=== PATIENT | male | born 1940 | race Caucasian/White ===

== ENCOUNTER → 2019-06-26 08:08 | Outpatient (CLI) | payer OTHER, SELFPAY ==
--- NOTE | 2019-06-26 | DI.NM.S_ITS ---
PROCEDURE: NM WINSOME PERF SPECT REST & STR Rest and exercise myocardial perfusion SPECT with gated imaging and ejection fraction RADIOPHARMACEUTICAL: 12.3 mCi Tc-99m sestamibi IV at rest and 26.8 mCi Tc-99m sestamibi IV at peak exercise. A one day-protocol was performed. INDICATIONS: Atherosclerotic heart disease of [place] coronary TECHNIQUE: Radiopharmaceutical was injected at peak stress test, and also at rest. SPECT images were obtained. SPECT myocardial perfusion images were displayed in short axis, horizontal long axis, and vertical long axis views. Gated images were reviewed using Agavideo software. COMPARISON: None. CARDIAC STRESS: A standard Anam treadmill exercise tolerance test was performed by the patient under the supervision of an attending staff. The patient exercised for 6 minutes and 53 seconds reaching 10.1 METs; functional aerobic impairment (JENNY) is -15%. Hemodynamic data: There is normal blood pressure and heart rate response to exercise stress. Patient achieved 98% of maximum predicted heart rate at peak exercise. Symptoms: Patient had mild epigastric discomfort during second stage of anam protocol that worsened slightly during third stage of anam protocol and the symptoms resolved within one minute of recovery. EKG: Mild horizontal ST depressions in the inferior and anterolateral barger 3 minutes into recovery. FINDINGS: Raw data: There is good myocardial labeling by radiotracer. No significant motion artifacts. Undp-mo-lkoaq ratio is 0.2 (normal is less than 0.38 for sestamibi tracer, and less than 0.50 for thallium tracer). Left ventricle function: Gated images demonstrate normal left ventricle wall thickening. No segmental wall motion abnormality. No transient ischemic dilation; TID is 0.96 (normal less than 1.3). The left ventricle resting end-diastolic volume is 102 mL. Left ventricle stress ejection fraction is 67%; normal values are above 45%. Myocardial perfusion: There is moderately sized, moderately severe reversible perfusion defect at the apex consistent with ischemia in the LAD territory. No infarction. SSS 6. SRS 1. IMPRESSION: Abnormal nuclear stress test consistent with ischemia. No infarction. 1) There is moderately sized, moderately severe reversible perfusion defect at the apex consistent with ischemia in the LAD territory. No infarction. SSS 6. SRS 1. 2) Normal left ventricular size, wall motion, and systolic function (EF post stress 67%). 3) ECG changes suggestive of ischemia. 4) Angina during the study. 5) Above average exercise tolerance (10.1 METs JENNY -15%). Adequate stress test as 98% of maximum predicted heart rate achieved. 6) No prior nuclear stress test available for comparison. Dictated by: Lev Rodríguez MD on 06/26/2019 at 15:09 Approved by: Lev Rodríguez MD on 06/26/2019 at 15:14
== END ==
PROVIDERS: PCP Internal Medicine; Visit Provider Internal Medicine Cardiovascular Disease
DX: I25.10 Atherosclerotic heart disease of native coronary artery without angina pectoris (principal)
CPT/HCPCS: 78452; 93016; 93017; 93018; A9502

== ENCOUNTER → 2019-07-15 12:58 | Outpatient (CLI) | payer OTHER, SELFPAY ==
[2019-07-15 15:55] LABS: Estimated Glomerular Filt Rate > 60.0 mL/min (>60)
== END ==
PROVIDERS: PCP Internal Medicine; Visit Provider Internal Medicine Interventional Cardiology
DX: I25.119 Atherosclerotic heart disease of native coronary artery with unspecified angina pectoris (principal)
CPT/HCPCS: 36415; 82565

== ENCOUNTER → 2019-08-27 10:37 | Outpatient (CLI) | payer OTHER, SELFPAY ==
--- NOTE | 2019-08-27 | DI.NM.S_ITS ---
PROCEDURE: NM WINSOME PERF SPECT REST & STR Rest and exercise myocardial perfusion SPECT with gated imaging and ejection fraction RADIOPHARMACEUTICAL: 25.8 mCi Tc-99m sestamibi IV at rest and 25.4 mCi Tc-99m sestamibi IV at peak exercise. A two day-protocol was performed. INDICATIONS: Atherosclerotic heart disease of [place] coronary, exertional chest pain TECHNIQUE: Radiopharmaceutical was injected at peak stress test, and also at rest. SPECT images were obtained. SPECT myocardial perfusion images were displayed in short axis, horizontal long axis, and vertical long axis views. Gated images were reviewed using [employer] software. COMPARISON: None. CARDIAC STRESS: A standard Anam treadmill exercise tolerance test was performed by the patient under the supervision of an attending staff. The patient exercised for 7 minutes and 4 seconds reaching 10.1 METs; functional aerobic impairment (JENNY) is -10%. Hemodynamic data: There is normal blood pressure and heart rate response to exercise stress. Patient achieved 98% of maximum predicted heart rate at peak exercise. Symptoms: Patient developed 2/10 chest discomfort about 5 minutes and 30 seconds into exercise. It decreased during recovery and resolved with nitro SL. EKG: No diagnostic EKG changes of ischemia; frequent PVCs during recovery. FINDINGS: Raw data: There is good myocardial labeling by radiotracer. No significant motion artifacts. Eoai-aw-vlcrb ratio is 0.39 (normal is less than 0.38 for sestamibi tracer, and less than 0.50 for thallium tracer). Left ventricle function: Gated images demonstrate normal left ventricle wall thickening. No segmental wall motion abnormality. No transient ischemic dilation; TID is 0.74 (normal less than 1.3). The left ventricle resting end-diastolic volume is 106 mL. Left ventricle stress ejection fraction is 66%; normal values are above 45%. Myocardial perfusion: There is a large reversible defect involving the entire apex consistent with ischemia with no significant infarction. SSS 10, SRS 2. IMPRESSION: Abnormal treadmill nuclear stress test, consistent with ischemia. 1) There is a large reversible defect involving the entire apex consistent with ischemia with no significant infarction. SSS 10, SRS 2. 2) Normal left ventricular size, wall motion, and systolic function (EF post stress 66%). 3) No ECG evidence of ischemia. 4) Mild angina with exercise that resolved with rest and nitroglycerin sublingual X1. 5) Above average exercise tolerance (10.1 METs, JENNY -10%). Target heart rate achieved. 6) Compared to the treadmill nuclear stress test done 06/26/2019, the apical ischemia appears slightly worse but there are no ECG changes on this study compared to the prior study. Both studies demonstrated angina in the patient. Dictated by: Lev Rodríguez MD on 08/28/2019 at 16:33 Approved by: Lev Rodríguez MD on 08/28/2019 at 16:42
== END ==
PROVIDERS: PCP Internal Medicine; Visit Provider Internal Medicine Cardiovascular Disease
DX: I25.118 Atherosclerotic heart disease of native coronary artery with other forms of angina pectoris (principal); Z95.5 Presence of coronary angioplasty implant and graft
CPT/HCPCS: 78452; 93016; 93017; 93018; A9502

== ENCOUNTER 2019-09-01 08:02 | Outpatient (RCR) | payer OTHER, SELFPAY | END 2019-09-01 15:19 | disposition home or self-care (01) | LOC: CAR 08:02 | PROVIDERS: PCP Internal Medicine; Visit Provider Internal Medicine Cardiovascular Disease | DX: Z95.5 Presence of coronary angioplasty implant and graft (principal) | CPT/HCPCS: 93798 ==

== ENCOUNTER → 2019-11-21 08:42 | Outpatient (CLI) | payer MEDICARE, SELFPAY ==
[2019-11-21 10:12] LABS: Add Manual Diff / Slide Review NO; Basophils Absolute Auto 0 /uL (0-100); Basophils Percent Auto 0.8 % (0-2); Eosinophils Absolute Auto 100 /uL (0-450); Eosinophils Percent Auto 1.1 % (2-4); Hematocrit 44.2 % (41-53); Hemoglobin 15.5 g/dL (13.5-17.5); Lymphocytes Absolute Auto 1400 /uL (1100-4500); Lymphocytes Percent Auto 27.7 % (25-40); Mean Corpuscular HGB Conc 35.1 % (30-36); Mean Corpuscular Hemoglobin 31.6 PG (26-34); Mean Corpuscular Volume 90.1 fL (80-100); Monocytes Absolute Auto 400 /uL (0-900); Monocytes Percent Auto 8.6 % (3-14); Neutrophils Absolute Auto 3100 /uL (1500-7000); Neutrophils Percent Auto 61.8 % (50-75); Platelet Count 289 X10^3/uL (150-400); Red Blood Cell Count 4.91 X10^6/uL (4.5-5.9); Red Cell Distribution Width 13.6 % (11.6-14.8)
[2019-11-21 10:27] LABS: BUN Creatinine Ratio 18.6 (6-22); Blood Urea Nitrogen 13 mg/dL (9-20); Calcium 9.5 mg/dL (8.4-10.2); Carbon Dioxide 32 mmol/L (22-32); Chloride 97 mmol/L (98-107); Cholesterol 144 mg/dL (140-199); Estimated Glomerular Filt Rate > 60.0 mL/min (>60); Glucose 123 mg/dL (80-110); HDL Cholesterol 48 mg/dL (40-60); HEMOLYSIS < 15 (0-50); LDL Cholesterol Calculated 82 mg/dL (<100); Potassium 4.4 mmol/L (3.4-5.1); Sodium 136 mmol/L (137-145); Triglycerides 71 mg/dL (35-150)
== END ==
PROVIDERS: PCP Internal Medicine; Visit Provider Internal Medicine Cardiovascular Disease
DX: E78.5 Hyperlipidemia, unspecified (principal); I25.10 Atherosclerotic heart disease of native coronary artery without angina pectoris
CPT/HCPCS: 36415; 80048; 80061; 85025

== ENCOUNTER 2021-01-04 13:08 | Emergency (ER) | payer OTHER, SELFPAY ==
[2021-01-04] VITALS (7 sets, daily range): BP systolic 120–174; BP diastolic 61–85; PULSE 57–71; RESP 18; TEMP 36.6; O2SAT 95–98
--- NOTE | 2021-01-04 13:16 | DI.CT.S_ITS ---
PROCEDURE: CT HEAD/BRAIN WO CON INDICATIONS: dizzy TECHNIQUE: Noncontrast 4.5 mm thick angled axial sections acquired from the foramen magnum to the vertex, with coronal and sagittal reformats. For radiation dose reduction, the following was used: automated exposure control, adjustment of mA and/or kV according to patient size. COMPARISON: None. FINDINGS: Image quality: Excellent. CSF spaces: Basal cisterns are patent. No extra-axial fluid collections. The ventricles are symmetric in size and shape. Brain: No intracranial bleeds or masses. There is cerebral volume loss for age, with resultant ventricular and sulcal prominence. There are periventricular and deep white matter chronic small vessel ischemic changes. There is intracranial internal carotid artery atherosclerosis. Skull and face: Calvarium and visualized facial bones appear intact, without suspicious lesions. Sinuses: Visualized sinuses and mastoids are clear. IMPRESSION: Mild microvascular atherosclerotic change in the deep white matter of each hemisphere, expected for age. No acute disease. Dictated by: Josiah Quinteros M.D. on 01/04/2021 at 13:40 Approved by: Josiah Quinteros M.D. on 01/04/2021 at 13:40
[2021-01-04 13:40] LABS: Add Manual Diff / Slide Review NO; Basophils Absolute Auto 0 /uL (0-100); Basophils Percent Auto 0.5 % (0-2); Eosinophils Absolute Auto 100 /uL (0-450); Hematocrit 41.3 % (41-53); Hemoglobin 14.1 g/dL (13.5-17.5); Lymphocytes Absolute Auto 1100 /uL (1100-4500); Mean Corpuscular HGB Conc 34.1 % (30-36); Mean Corpuscular Hemoglobin 30.7 PG (26-34); Mean Corpuscular Volume 90.1 fL (80-100); Monocytes Absolute Auto 400 /uL (0-900); Monocytes Percent Auto 7.2 % (3-14); Neutrophils Absolute Auto 4600 /uL (1500-7000); Neutrophils Percent Auto 74.3 % (50-75); Platelet Count 242 X10^3/uL (150-400); Red Blood Cell Count 4.58 X10^6/uL (4.5-5.9); Red Cell Distribution Width 13.5 % (11.6-14.8); White Blood Cell Count 6.2 X10^3/uL (4.5-11.0)
[2021-01-04] MEDS: SODIUM CHLORIDE 0.9% 1,000 ML 150 ML IV (13:40)
[2021-01-04] MEDS: ONDANSETRON 4 MG/2 ML INJ IV (13:41)
[2021-01-04] MEDS: MECLIZINE HCL 12.5 MG TABLET 25 MG PO (13:41)
[2021-01-04 13:55] LABS: Alanine Aminotransferase 26 IU/L (<50); Albumin 3.9 g/dL (3.5-5.0); Albumin Globulin Ratio 1.8 (1.0-2.8); Alkaline Phosphatase 82 U/L (38-126); Aspartate Aminotransferase 25 IU/L (17-59); BUN Creatinine Ratio 24.6 (6-22); Bilirubin Total 0.4 mg/dL (0.2-1.3); Blood Urea Nitrogen 15 mg/dL (9-20); Calcium 8.7 mg/dL (8.4-10.2); Carbon Dioxide 26 mmol/L (22-32); Chloride 100 mmol/L (98-107); Creatine Kinase 29 U/L (55-170); Estimated Glomerular Filt Rate > 60.0 mL/min (>60); Globulin 2.2 g/dL (1.7-4.1); Glucose 203 mg/dL (80-110); HEMOLYSIS < 15 (0-50); Potassium 3.9 mmol/L (3.4-5.1); Sodium 132 mmol/L (137-145); Total Protein 6.1 g/dL (6.3-8.2)
[2021-01-04 14:07] LABS: Troponin I < 0.012 ng/mL (0.01-0.034)
--- NOTE | 2021-01-04 15:26 | ED_ITS ---
HPI - Dizziness General Chief Complaint: Dizziness Stated Complaint: Dizzy Time Seen by Provider: 01/04/21 13:14 Source: patient Mode of arrival: EMS History of Present Illness HPI Narrative: Patient is a 80-year-old male with history of coronary artery disease and stent placed who presents with dizziness off and on for last 3 days. He said he 1st felt it a couple days ago when he got up to use the restroom. He denies any nausea or vomiting he has some slight head pressure no weakness numbness or tingling. He has also had some intermittent episodes since then. Brace on his prior history of cardiac disease patient was worried today and wanted to have some further evaluation could the dizziness seemed to get a little worse whenever he stands. He denies any chest pain. He was worried he might be having a stroke. MD complaint: dizziness Onset (ago): day(s) Description: sense of movement History of similar episodes: No History of trauma: No Severity: mild Related Data Allergies Allergy/AdvReac Type Severity Reaction Status Date / Time Penicillins Allergy Verified 01/04/21 13:39 Review of Systems Review of Systems ROS Unobtainable: All systems reviewed & are unremarkable except as noted in HPI and below Constitutional Constitutional: Denies chills, Denies fever(s), Denies frequent falls, Reports headache(s), Denies lethargy and Denies weakness Eyes Eyes: Denies change in vision, Denies eye discharge, Denies irritation and Denies loss of vision ENT Ears, Nose, Mouth, and Throat: Reports dizziness and Reports headache(s) Cardiovascular Cardiovascular: Denies chest pain, Denies syncope, Denies irregular heart rhythm, Denies lightheadedness, Denies palpitations, Denies dyspnea, Denies dyspnea on exertion and Denies orthopnea Respiratory Respiratory: Denies cough, Denies dyspnea, Denies dyspnea on exertion and Denies wheezing Gastrointestinal Gastrointestinal: Denies abdominal pain, Denies change in bowel habits, Denies diarrhea, Denies nausea and Denies vomiting Musculoskeletal Musculoskeletal: Denies back pain and Denies myalgias Integumentary/Breasts Skin/Breast: Denies pruritus, Denies erythema, Denies rash and Denies wounds Neurologic Neurologic: Reports dizziness, Denies syncope, Denies frequent falls, Reports headache(s), Denies loss of vision and Denies weakness Endocrine Endocrine: Denies palpitations Allergic/Immunologic Allergic/Immunologic: Denies wheezing Patient History Medical History Coronary artery disease Diabetes Exam Initial Vital Signs Initial Vital Signs: Vital Signs Temperature 97.9 F 01/04/21 13:11 Pulse Rate 71 01/04/21 13:11 Respiratory Rate 18 01/04/21 13:11 Blood Pressure 174/83 H 01/04/21 13:11 Pulse Oximetry 98 01/04/21 13:11 GENERAL: Alert pleasant 80-year-old male and in no acute distress. HEENT: Head atraumatic,EOMI, pupils reactive, no nystagmus face symmetric, moist mucous membranes CARDIOVASCULAR: Regular rate and rhythm without murmurs, rubs or gallops. RESPIRATORY: Breath sounds equal bilaterally, no wheezes rales or rhonchi. ABDOMEN: Soft, nontender. Normoactive bowel sounds all 4 quadrants. No guarding or rebound. EXTREMITIES: Normal range of motion, no clubbing or edema. Neurovascularly intact NEUROLOGICAL: Alert and oriented x4.Normal gait and speech. Cranial nerves II through XII grossly intact. Good mkvpul-nz-yzia, good imxl-tr-rmiv, strength equal bilaterally, no dysarthria or aphasia, sensation in tact to soft touch bilaterally, no visual changes, no facial droop SKIN: Warm, dry, no laceration, no petechiae, no rashes or lesions. Scores NIH Stroke Scale Level of Conciousness: Alert, keenly responsive Ask month/age: Answers both questions correctly. Open/close eyes, close hand: Performs both tasks correctly Best gaze horizontal: Normal Visual [place]: No visual loss Facial palsy: Normal symetrical movement Left arm drift: No drift for full 10 sec Right arm drift: No drift for full 10 sec Left leg drift: No drift for full 5 sec Right leg drift: No drift for full 5 sec Limb ataxia: Absent Sensory on face/arms/legs: Normal, no sensory loss Best language: No aphasia, normal Dysarthria: Normal Extinction or inattention: No abnormality Total NIH Stroke scale score: 0 Course Orders Ordered: ED Orders 01/04/21 13:13 EKG-12 Lead Routine 01/04/21 13:16 CT head/brain wo con Stat 01/04/21 13:32 Complete Blood Count AUTO DIFF Stat Comprehensive Metabolic Panel Stat Troponin & CK Cardiac Panel Stat 01/04/21 15:46 CT angio head and neck Stat Discontinued Medications Sodium Chloride (Normal Saline 0.9%) 1,000 mls @ 150 mls/hr IV CONT QUYNH Last Infusion: 01/04/21 16:22 Dose: 0 mls/hr Documented by: Infusion: 01/04/21 16:01 Dose: 150 mls/hr Documented by: Infusion: 01/04/21 15:00 Dose: 0 mls/hr Documented by: Admin: 01/04/21 13:40 Dose: 150 mls/hr Documented by: HANG Meclizine HCl (Meclizine Hcl 12.5 Mg Tablet) 25 mg PO NOW ONE Stop: 01/04/21 13:17 Last Admin: 01/04/21 13:41 Dose: 25 mg Documented by: HANG Ondansetron HCl (Ondansetron 4 Mg/2 Ml Inj) 4 mg IV NOW ONE Stop: 01/04/21 13:17 Last Admin: 01/04/21 13:41 Dose: 4 mg Documented by: HANG Vital Signs Vital signs: Vital Signs - 8 hr 01/04/21 13:11 01/04/21 13:48 01/04/21 14:00 Temperature 97.9 F Pulse Rate 71 62 66 Respiratory Rate 18 Blood Pressure 174/83 H 125/61 Pulse Oximetry 98 95 97 01/04/21 14:30 01/04/21 15:00 01/04/21 16:17 Temperature Pulse Rate 58 L 57 L Respiratory Rate Blood Pressure 120/61 124/62 Pulse Oximetry 97 98 98 01/04/21 16:18 Temperature Pulse Rate 58 L Respiratory Rate Blood Pressure 137/85 Pulse Oximetry 98 MDM - Dizziness Lab Data Attestation: I reviewed the patient's lab results. Result diagrams: 01/04/21 13:32 01/04/21 13:32 Labs: Lab Results 01/04/21 01/04/21 Range/Units 13:32 13:32 WBC 6.2 (4.5-11.0) X10^3/uL RBC 4.58 (4.5-5.9) X10^6/uL Hgb 14.1 (13.5-17.5) g/dL Hct 41.3 (41-53) % MCV 90.1 (80-100) fL MCH 30.7 (26-34) PG MCHC 34.1 (30-36) % RDW 13.5 (11.6-14.8) % Plt Count 242 (150-400) X10^3/uL Neut % (Auto) 74.3 (50-75) % Lymph % (Auto) 17.0 L (25-40) % Henry % (Auto) 7.2 (3-14) % Eos % (Auto) 1.0 L (2-4) % Baso % (Auto) 0.5 (0-2) % Neut # (Auto) 4600 (9131-5616) /uL Lymph # (Auto) 1100 (4299-0309) /uL Henry # (Auto) 400 (0-900) /uL Eos # (Auto) 100 (0-450) /uL Baso # (Auto) 0 (0-100) /uL Sodium 132 L (137-145) mmol/L Potassium 3.9 (3.4-5.1) mmol/L Chloride 100 (98-107) mmol/L Carbon Dioxide 26 (22-32) mmol/L BUN 15 (9-20) mg/dL Creatinine 0.61 L (0.66-1.25) mg/dL Estimated GFR > 60.0 (>60) mL/min BUN/Creatinine Ratio 24.6 H (6-22) Glucose 203 H (80-110) mg/dL Calcium 8.7 (8.4-10.2) mg/dL Total Bilirubin 0.4 (0.2-1.3) mg/dL AST 25 (17-59) IU/L ALT 26 (<50) IU/L Alkaline Phosphatase 82 (38-126) U/L Total Creatine Kinase 29 L (55-170) U/L CK-MB (CK-2) TNP CK-MB (CK-2) Rel Index TNP Troponin I < 0.012 (0.01-0.034) ng/mL Total Protein 6.1 L (6.3-8.2) g/dL Albumin 3.9 (3.5-5.0) g/dL Globulin 2.2 (1.7-4.1) g/dL Albumin/Globulin Ratio 1.8 (1.0-2.8) Imaging Data CT scan - head: Radiologist's Impression: PROCEDURE: CT HEAD/BRAIN WO CON INDICATIONS: dizzy TECHNIQUE: Noncontrast 4.5 mm thick angled axial sections acquired from the foramen magnum to the vertex, with coronal and sagittal reformats. For radiation dose reduction, the following was used: automated exposure control, adjustment of mA and/or kV according to patient size. COMPARISON: None. FINDINGS: Image quality: Excellent. CSF spaces: Basal cisterns are patent. No extra-axial fluid collections. The ventricles are symmetric in size and shape. Brain: No intracranial bleeds or masses. There is cerebral volume loss for age, with resultant ventricular and sulcal prominence. There are periventricular and deep white matter chronic small vessel ischemic changes. There is intracranial internal carotid artery atherosclerosis. Skull and face: Calvarium and visualized facial bones appear intact, without suspicious lesions. Sinuses: Visualized sinuses and mastoids are clear. IMPRESSION: Mild microvascular atherosclerotic change in the deep white matter of each hemisphere, expected for age. No acute disease. Dictated by: Josiah Quinteros M.D. on 01/04/2021 at 13:40 CTA - brain/neck: Radiologist's Impression: PROCEDURE: CT ANGIO HEAD AND NECK INDICATIONS: dizzy TECHNIQUE: After the administration of intravenous contrast, 1 mm thick sections acquired from the aortic arch through the [place]. Post-contrast 4.5 mm thick sections then re-acquired from the foramen magnum to the vertex. 3-dimensional ttsyhcv-uthizbdsq-zmlkgthios (MIP) and/or volume rendering reformats were acquired of the central intracranial vasculature and neck separately. COMPARISON: None. FINDINGS: Image quality: Excellent. BRAIN: CSF spaces: Ventricles are normal in size and shape. Basal cisterns are patent. No extra-axial fluid collections. Brain: No midline shift. No intracranial bleeds or masses. [place]-white matter interface appears intact. Skull and face: Calvarium and facial bones appear intact, without suspicious lesions. Orbits appear normal. Sinuses: Sinuses and mastoids are clear. HEAD CT ANGIOGRAPHY: Anterior circulation: Intracranial internal carotid arteries are normal in size and flow. The flow within the paired anterior cerebral arteries is normal and symmetric. The flow within the middle cerebral arteries is normal and symmetric. The anterior communicating artery is seen, and the right anterior cerebral artery is fed through the communicating artery from the left with absence of the A1 segment on the right. No aneurysms are seen. Posterior circulation: Visualized portions of the vertebral arteries demonstrate normal caliber, and join to form a normal appearing basilar artery. Flow within the posterior cerebral arteries is normal and symmetric. No aneurysms are seen. NECK CT ANGIOGRAPHY: Carotid system: The great vessels demonstrate a conventional anatomy as they arise from the aortic arch. The origins of the common carotid arteries appear patent. The common carotid arteries demonstrate normal caliber and courses. The bifurcation regions are both widely patent. The internal carotid arteries demonstrate normal calibers and courses. Posterior circulation: The origins of the vertebral arteries both appear widely patent. The more superior extracranial portions of both vertebral arteries also demonstrate normal courses and calibers. They join to form a normal appearing basilar artery. Soft tissues: Visualized neck soft tissues demonstrate no suspicious abnormalities. Bones: No suspicious bony lesions. Visualized cervical spine appears normally aligned. IMPRESSION: No area of aneurysm or embolic disease is found. No atherosclerotic stenosis of significance identified. 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 No sign of intracranial hemorrhage or mass, no ischemic injury is seen. Source of reported dizziness is not identified. Any quantitative measurements of stenosis were performed using NASCET criteria. Dictated by: Josiah Quinteros M.D. on 01/04/2021 at 16:09 ECG Data Attestation: I personally reviewed and interpreted this ECG as follows: Prior ECG tracings: not available for review Interpretation: Sinus rhythm rate [address] changes artifact noted MDM Narrative Medical decision making narrative: Patient has mild dizziness which seems to be resolved without moving he has no focal deficits. No chest pain blood work and initial noncontrast head CT are overall reassuring. Ambulation trial patient does get slightly dizzy. For redness CT angio head and neck un remarkable. As the patient's symptoms are very mild low concern for posterior CVA. Symptoms have been on and off for a few days. He has an appointment with a neurologist for some reason in a few weeks. I recommend he continue to have that appointment and return if symptoms worsen. Discharge Plan Departure Patient Disposition: Home Clinical Impression: Dizziness, nonspecific Instructions: DI for Dizziness-Nonvertigo Activity Restrictions/Additional Instructions: *You have been diagnosed with dizziness *What to do: Increased fluid intake go slow. At this time blood work and CT scan are negative however you may require further testing here primary care provider if symptoms persist. If symptoms are worsening please return to emergency department *Continue to take medications as directed *Follow up with your primary care provider in 2-3 days *Return to ER if you should have worsening dizziness, weakness, numbness, tingling, persistent nausea or vomiting or any new, worsening or concerning symptoms Referrals: Brendan Levine MD [Primary Care Provider] -
--- NOTE | 2021-01-04 15:46 | DI.CT.S_ITS ---
PROCEDURE: CT ANGIO HEAD AND NECK INDICATIONS: dizzy TECHNIQUE: After the administration of intravenous contrast, 1 mm thick sections acquired from the aortic arch through the [place] of [place]. Post-contrast 4.5 mm thick sections then re-acquired from the foramen magnum to the vertex. 3-dimensional zybtnkb-duxneejse-yhpbojexhg (MIP) and/or volume rendering reformats were acquired of the central intracranial vasculature and neck separately. COMPARISON: None. FINDINGS: Image quality: Excellent. BRAIN: CSF spaces: Ventricles are normal in size and shape. Basal cisterns are patent. No extra-axial fluid collections. Brain: No midline shift. No intracranial bleeds or masses. [place]-white matter interface appears intact. Skull and face: Calvarium and facial bones appear intact, without suspicious lesions. Orbits appear normal. Sinuses: Sinuses and mastoids are clear. HEAD CT ANGIOGRAPHY: Anterior circulation: Intracranial internal carotid arteries are normal in size and flow. The flow within the paired anterior cerebral arteries is normal and symmetric. The flow within the middle cerebral arteries is normal and symmetric. The anterior communicating artery is seen, and the right anterior cerebral artery is fed through the communicating artery from the left with absence of the A1 segment on the right. No aneurysms are seen. Posterior circulation: Visualized portions of the vertebral arteries demonstrate normal caliber, and join to form a normal appearing basilar artery. Flow within the posterior cerebral arteries is normal and symmetric. No aneurysms are seen. NECK CT ANGIOGRAPHY: Carotid system: The great vessels demonstrate a conventional anatomy as they arise from the aortic arch. The origins of the common carotid arteries appear patent. The common carotid arteries demonstrate normal caliber and courses. The bifurcation regions are both widely patent. The internal carotid arteries demonstrate normal calibers and courses. Posterior circulation: The origins of the vertebral arteries both appear widely patent. The more superior extracranial portions of both vertebral arteries also demonstrate normal courses and calibers. They join to form a normal appearing basilar artery. Soft tissues: Visualized neck soft tissues demonstrate no suspicious abnormalities. Bones: No suspicious bony lesions. Visualized cervical spine appears normally aligned. IMPRESSION: No area of aneurysm or embolic disease is found. No atherosclerotic stenosis of significance identified. 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 No sign of intracranial hemorrhage or mass, no ischemic injury is seen. Source of reported dizziness is not identified. Any quantitative measurements of stenosis were performed using NASCET criteria. Dictated by: Josiah Quinteros M.D. on 01/04/2021 at 16:09 Approved by: Josiah Quinteros M.D. on 01/04/2021 at 16:14
== END 2021-01-04 16:29 | disposition home or self-care (01) ==
PROVIDERS: Emergency Provider Emergency Medicine; PCP Internal Medicine
DX: R42 Dizziness and giddiness (principal); R51.9 Headache, unspecified
CPT/HCPCS: 36415; 70450; 70496; 70498; 80053; 82550; 84484; 85025; 93005; 96361; 96374; 99284; J2405; Q9967

== ENCOUNTER 2022-12-29 10:31 | Emergency (ER) | payer OTHER, SELFPAY ==
[2022-12-29 10:40] VITALS: BP 124/81; PULSE 68; RESP 14; TEMP 36.2; O2SAT 99; BMI 23.0
--- NOTE | 2022-12-29 10:56 | DI.CT.S_ITS ---
PROCEDURE: CT HEAD/BRAIN WO CON INDICATIONS: shooting pain left head, left face numbness, left facial marion TECHNIQUE: Noncontrast 4.5 mm thick angled axial sections acquired from the foramen magnum to the vertex, with coronal and sagittal reformats. For radiation dose reduction, the following was used: automated exposure control, adjustment of mA and/or kV according to patient size. COMPARISON: [facility], CT, CT HEAD/BRAIN WO CON, 01/04/2021, 13:17. FINDINGS: Image quality: Excellent. CSF spaces: Basal cisterns are patent. No extra-axial fluid collections. Ventricles are normal in size and shape. 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 No intracranial masses or hemorrhage. Alfaro-white matter interface is normal. Mild cerebral and cerebellar volume loss with multifocal white matter chronic ischemic change noted. Atherosclerotic calcification noted associated with cavernous segments of both internal carotid arteries. Skull and face: Calvarium and visualized facial bones are intact, without suspicious lesions. Sinuses: Visualized sinuses and mastoids are clear. IMPRESSION: Atrophy and chronic ischemic change without acute intracranial hemorrhage or mass effect Approved by: Kiran Ramey M.D. on 12/29/2022 at 11:02
--- NOTE | 2022-12-29 10:57 | DI.CT.S_ITS ---
PROCEDURE: CT ANGIO HEAD AND NECK INDICATIONS: Left head pain, left facial droop TECHNIQUE: After the administration of intravenous contrast, 1 mm thick sections acquired from the aortic arch through the [place] of [place]. Post-contrast 4.5 mm thick sections then re-acquired from the foramen magnum to the vertex. MIP reformats of the arterial vasculature were utilized. For radiation dose reduction, the following was used: automated exposure control, adjustment of mA and/or kV according to patient size. COMPARISON: [facility], CT, CT ANGIO HEAD AND NECK, 01/04/2021, 15:48. FINDINGS: Cerebral CT Angiogram: Internal carotid arteries: No acute findings. Intracranial ICA are patent with no significant stenosis. No occlusion. No aneurysm. Mild calcified atherosclerotic plaque Anterior cerebral arteries: Hypoplasia/aplasia of the right A1 HARMAN noted. The A2 segment is supplied by a widely patent anterior communicating artery. Remainder of the distal vasculature unremarkable. Middle cerebral arteries: Unremarkable. No significant stenosis. No occlusion. No aneurysm. Posterior cerebral arteries: Unremarkable. No significant stenosis. No occlusion. No aneurysm. Basilar artery: Unremarkable. No significant stenosis. No occlusion. No aneurysm. Vertebral arteries: Unremarkable as visualized. 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 Neck CT Angiogram: Internal carotid arteries: Unremarkable. No significant stenosis. No dissection or occlusion. Common carotid arteries: Unremarkable. No significant stenosis. No dissection or occlusion. External carotid arteries: Unremarkable. No occlusion. Vertebral arteries: Unremarkable. No significant stenosis. No dissection or occlusion. Other: Multilevel degenerative disc disease and arthropathy in the cervical spine. Aortic Arch and Mediastinum: Partially visualized aortic arch unremarkable without evidence of aneurysm. Origins of the great vessels unremarkable. IMPRESSION: 1. Stable CT angiogram without change from 01/04/2021. No evidence of large vessel occlusion, aneurysm or vascular malformation. No significant arterial stenosis. 2. 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 Approved by: Kiran Ramey M.D. on 12/29/2022 at 11:14
[2022-12-29 11:10] LABS: Prothrombin Time 11.3 SECONDS (10.1-12.7)
[2022-12-29 11:13] LABS: PTT Partial Thromboplastin Tim 36 SECONDS (26-36)
[2022-12-29 11:17] LABS: Alanine Aminotransferase 24 IU/L (<50); Albumin 4.4 g/dL (3.5-5.0); Albumin Globulin Ratio 1.6 (1.0-2.8); Alkaline Phosphatase 88 U/L (38-126); Aspartate Aminotransferase 34 IU/L (17-59); BUN Creatinine Ratio 21.6 (6-22); Bilirubin Total 0.9 mg/dL (0.2-1.3); Blood Urea Nitrogen 11 mg/dL (9-20); Calcium 8.7 mg/dL (8.4-10.2); Carbon Dioxide 30 mmol/L (22-32); Chloride 94 mmol/L (98-107); Creatine Kinase 27 U/L (55-170); Estimated Glomerular Filt Rate > 60 mL/min (>60); Ethanol (ETOH) < 10 mg/dL; Globulin 2.7 g/dL (1.7-4.1); Glucose 122 mg/dL (80-110); HEMOLYSIS 22 (0-50); Sodium 133 mmol/L (137-145); Total Protein 7.1 g/dL (6.3-8.2)
[2022-12-29 11:22] LABS: Add Manual Diff / Slide Review NO; Basophils Absolute Auto 0 /uL (0-100); Basophils Percent Auto 0.4 % (0-2); Eosinophils Absolute Auto 100 /uL (0-450); Eosinophils Percent Auto 1.4 % (2-4); Hematocrit 42.7 % (41-53); Hemoglobin 14.5 g/dL (13.5-17.5); Lymphocytes Absolute Auto 1500 /uL (1100-4500); Lymphocytes Percent Auto 22.5 % (25-40); Mean Corpuscular HGB Conc 33.9 % (30-36); Mean Corpuscular Hemoglobin 30.6 PG (26-34); Mean Corpuscular Volume 90.2 fL (80-100); Monocytes Absolute Auto 500 /uL (0-900); Monocytes Percent Auto 7.4 % (3-14); Neutrophils Absolute Auto 4600 /uL (1500-7000); Neutrophils Percent Auto 68.3 % (50-75); Platelet Count 305 X10^3/uL (150-400); Red Blood Cell Count 4.73 X10^6/uL (4.5-5.9); Red Cell Distribution Width 13.6 % (11.6-14.8); White Blood Cell Count 6.7 X10^3/uL (4.5-11.0)
[2022-12-29 11:27] LABS: Troponin I < 0.012 ng/mL (0.01-0.034)
[2022-12-29 11:44] VITALS: BP 111/55; PULSE 60; RESP 14; O2SAT 100
--- NOTE | 2022-12-29 12:07 | ED.NEUROSD ---
HPI - Neuro Symptoms/Deficit General Chief Complaint: Neuro Symptoms/Deficit Stated Complaint: dizziness, shocking feeling on side of head Time Seen by Provider: 12/29/22 11:22 Source: patient Mode of arrival: Ambulatory History of Present Illness HPI Narrative: This is a 82-year-old male history cardiac stents and recanalization and new stents placed 2 years ago [facility], diabetes, hypertension, dyslipidemia on aspirin 81 mg daily with complaint of left-sided pain that is sort of like a shock that resolved he had 1 episode on Saturday and other on none on Saturday. He states pain is not really temporal. No rash or skin changes. No pain to the eye itself. He states he is felt a little dizzy he describes this as feeling mildly lightheaded no vertigo. No passing out. He states the 1st time it happened in the area around the eye felt sort of numb but had no vision change. He states he thought his pupils might be a little different size. Patient states no numbness no tingling no facial droop no changes to speech. States he has not had similar symptoms in the past. Denies any vertigo or room spinning. Denies chest pain, no shortness of breath, no issues with ambulation. Does not feel off balance. Denies issues with bowel movements, later his upon arrival states he is had some loose stools for 2 weeks. No urinary symptoms. No new swelling in his extremities. Patient states he would cardiac stents 13 years ago and then recanalization with new stents placed at the same location 2 years ago. This was performed at [facility]. States allergic to penicillin. No tobacco, no alcohol, no illicit. Dr. Rodriguez is his primary care. He does follow with Cardiology. On Anticoagulants: Yes (81 mg daily) Related Data Allergies Allergy/AdvReac Type Severity Reaction Status Date / Time Penicillins Allergy Verified 12/29/22 10:58 Review of Systems Review of Systems ROS Unobtainable: All systems reviewed & are unremarkable except as noted in HPI and below Hematologic/Lymphatic On Anticoagulants: Yes (81 mg daily) Patient History Medical History Coronary artery disease Diabetes Social History Smoking Status: Never smoker Smoking Status: Never smoker alcohol intake frequency: 0-2 drinks per day Substance Use Type: does not use Exam Narrative Exam Narrative: GEN: well nourished, well appearing male, alert and oriented x 3, patient appears to be in mild distress. HEENT: Atraumatic, pupils are equal round reactive to light, extraocular movements are intact, nares are clear, TMs are clear with no fluid, there is no conjunctival pallor. Throat is clear without any exudates, erythema, tonsillar enlargement or uvular deviation, mild facial droop of the left corner. Patient's states this is his normal baseline. No rash or skin changes. No temporal tenderness. HEART: Regular rate and rhythm without murmur, clicks, rubs. No carotid bruits, pulses are equal in upper and lower extremities LUNGS:Lungs clear to auscultation, no wheezes, rales, crackles, chest moves symmetrically ABD:bowel sounds normal, soft, non-tender, no guarding, rebound, rigidity, no masses noted, no hepatosplenomegaly :No CVA tenderness MSCL: Non-tender, no muscle atrophy, muscles strength 5/5 upper and lower extremities, full range of motion, normal gait NEURO:CN 2-12 intact, sensation normal, reflexes 2/4 upper and lower extremities. finger nose finger test normal, heel catherine test normal SKIN: Rash, erythema or other skin changes Initial Vital Signs Initial Vital Signs: Vital Signs Temperature 97.1 F L 12/29/22 10:40 Pulse Rate 68 12/29/22 10:40 Respiratory Rate 14 12/29/22 10:40 Blood Pressure 124/81 12/29/22 10:40 Pulse Oximetry 99 12/29/22 10:40 Oxygen Delivery Method 12/29/22 10:40 Scores NIH Stroke Scale Level of Conciousness: Alert, keenly responsive Ask month/age: Answers both questions correctly. Open/close eyes, close hand: Performs both tasks correctly Best gaze horizontal: Normal Visual hylton: No visual loss Facial palsy: Minor paralysis, flattened nasolabial fold, asymmetry on smiling (right corner of mouth) Left arm drift: No drift for full 10 sec Right arm drift: No drift for full 10 sec Left leg drift: No drift for full 5 sec Right leg drift: No drift for full 5 sec Limb ataxia: Absent Sensory on face/arms/legs: Normal, no sensory loss Best language: No aphasia, normal Dysarthria: Normal Extinction or inattention: No abnormality Total NIH Stroke scale score: 1 Course Orders Ordered: ED Orders 12/29/22 10:49 Complete Blood Count AUTO DIFF Stat Comprehensive Metabolic Panel Stat Ethanol (ETOH) Stat Partial Thromboplastin Time Stat Prothrombin Time INR Stat Troponin & CK Cardiac Panel Stat 12/29/22 10:56 CT head/brain wo con Stat 12/29/22 10:57 CT angio head and neck Stat 12/29/22 11:08 EKG-12 Lead Stat Vital Signs Vital signs: Vital Signs - 8 hr 12/29/22 11:44 12/29/22 13:43 Pulse Rate 60 62 Respiratory Rate 14 18 Blood Pressure 111/55 L 116/69 Pulse Oximetry 100 99 Oxygen Delivery Method Room Air Room Air MDM - Neuro Symptoms/Deficit Lab Data 12/29/22 10:49 12/29/22 10:49 Labs: Lab Results 12/29/22 12/29/22 12/29/22 Range/Units 10:49 10:49 10:49 WBC 6.7 (4.5-11.0) X10^3/uL RBC 4.73 (4.5-5.9) X10^6/uL Hgb 14.5 (13.5-17.5) g/dL Hct 42.7 (41-53) % MCV 90.2 (80-100) fL MCH 30.6 (26-34) PG MCHC 33.9 (30-36) % RDW 13.6 (11.6-14.8) % Plt Count 305 (150-400) X10^3/uL Neut % (Auto) 68.3 (50-75) % Lymph % (Auto) 22.5 L (25-40) % [place] % (Auto) 7.4 (3-14) % Eos % (Auto) 1.4 L (2-4) % Baso % (Auto) 0.4 (0-2) % Neut # (Auto) 4600 (8562-2125) /uL Lymph # (Auto) 1500 (5043-7404) /uL [place] # (Auto) 500 (0-900) /uL Eos # (Auto) 100 (0-450) /uL Baso # (Auto) 0 (0-100) /uL PT 11.3 (10.1-12.7) SECONDS INR 1.0 (0.9-1.3) APTT 36 (26-36) SECONDS Sodium 133 L (137-145) mmol/L Potassium 4.0 (3.4-5.1) mmol/L Chloride 94 L (98-107) mmol/L Carbon Dioxide 30 (22-32) mmol/L BUN 11 (9-20) mg/dL Creatinine 0.51 L (0.66-1.25) mg/dL Estimated GFR > 60 (>60) mL/min BUN/Creatinine Ratio 21.6 (6-22) Glucose 122 H (80-110) mg/dL Calcium 8.7 (8.4-10.2) mg/dL Total Bilirubin 0.9 (0.2-1.3) mg/dL AST 34 (17-59) IU/L ALT 24 (<50) IU/L Alkaline Phosphatase 88 (38-126) U/L Total Creatine Kinase 27 L (55-170) U/L CK-MB (CK-2) TNP CK-MB (CK-2) Rel Index TNP Troponin I < 0.012 (0.01-0.034) ng/mL Total Protein 7.1 (6.3-8.2) g/dL Albumin 4.4 (3.5-5.0) g/dL Globulin 2.7 (1.7-4.1) g/dL Albumin/Globulin Ratio 1.6 (1.0-2.8) Ethyl Alcohol < 10 ( - 10) mg/dL Imaging Data CT scan - head: Radiologist's Impression: Close Head/Neck CTA (Signed) Kiran Ramey - 12/29/[address] (Signed) Kiran Ramey - 12/29/22 Head/Neck CTA (Signed) Josiah Quinteros - 01/04/[address] (Signed) Josiah Quinteros - 01/04/21 Myocardial Perfusion Scan Nuc Med (Signed) Lev Rodríguez - 08/27/19 Myocardial Perfusion Scan Nuc Med (Signed) Lev Rodríguez - 06/26/[address] [address] [address] Scan Report Signed Patient: Fidel Minaya MR#: [id number] : 1940 Acct:[id number] Age/Sex: 82 / M Date of Service: 12/29/22 Loc: ED Accession Number: [id number] ?? Procedure: CT head/brain wo con Ordering Provider: Mahnaz Aguirre D.O. PROCEDURE:? CT HEAD/BRAIN WO CON ? INDICATIONS:? shooting pain left head, left face numbness, left facial marion ? TECHNIQUE:? Noncontrast 4.5 mm thick angled axial sections acquired from the foramen magnum to the vertex, with coronal and sagittal reformats.? For radiation dose reduction, the following was used:? automated exposure control, adjustment of mA and/or kV according to patient size.? ? COMPARISON:? [facility], CT, CT HEAD/BRAIN WO CON, 01/04/2021, 13:17. ? FINDINGS:? Image quality:? Excellent.? ? CSF spaces:? Basal cisterns are patent.? No extra-axial fluid collections.? Ventricles are normal in size and shape.? 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 Brain:? No midline shift.? No intracranial masses or hemorrhage.? Alfaro-white matter interface is normal.? Mild cerebral and cerebellar volume loss with multifocal white matter chronic ischemic change noted.? Atherosclerotic calcification noted associated with cavernous segments of both internal carotid arteries. ? Skull and face:? Calvarium and visualized facial bones are intact, without suspicious lesions.? ? Sinuses:? Visualized sinuses and mastoids are clear.? ? IMPRESSION:? Atrophy and chronic ischemic change without acute intracranial hemorrhage or mass effect ? ? ? Approved by: Kiran Ramey M.D. on 12/29/2022 at 11:02? CT scan - chest: Radiologist's Impression: Close Head/Neck CTA (Signed) Kiran Ramey - 12/29/[address] (Signed) Kiran Ramey - 12/29/22 Head/Neck CTA (Signed) Josiah Quinteros - 01/04/[address] (Signed) Josiah Quinteros - 01/04/21 Myocardial Perfusion Scan Nuc Med (Signed) Lev Rodríguez - 08/27/19 Myocardial Perfusion Scan Nuc Med (Signed) Lev Rodríguez - 06/26/19 [facility] [address] [address] [address] Scan Report Signed Patient: Fidel Minaya MR#: [id number] : 1940 Acct:[id number] Age/Sex: 82 / M Date of Service: 12/29/22 Loc: ED Accession Number: [id number] ?? Procedure: CT angio head and neck Ordering Provider: Mahnaz Aguirre D.O. PROCEDURE:? CT ANGIO HEAD AND NECK ? INDICATIONS:? Left head pain, left facial droop ? TECHNIQUE:? After the administration of intravenous contrast, 1 mm thick sections acquired from the aortic arch through the [place] of Redd.? Post-contrast 4.5 mm thick sections then re-acquired from the foramen magnum to the vertex.? MIP reformats of the arterial vasculature were utilized.? For radiation dose reduction, the following was used:? automated exposure control, adjustment of mA and/or kV according to patient size.? ? COMPARISON:? [facility], CT, CT ANGIO HEAD AND NECK, 01/04/2021, 15:48. ? FINDINGS: ? Cerebral CT Angiogram: ? Internal carotid arteries:? No acute findings.? Intracranial ICA are patent with no significant stenosis.? No occlusion.? No aneurysm.? Mild calcified atherosclerotic plaque ? Anterior cerebral arteries:? Hypoplasia/aplasia of the right A1 HARMAN noted. The A2 segment is supplied by a widely patent anterior communicating artery. Remainder of the distal vasculature unremarkable. ? Middle cerebral arteries:? Unremarkable.? No significant stenosis.? No occlusion.? No aneurysm. ? Posterior cerebral arteries:? Unremarkable.? No significant stenosis.? No occlusion.? No aneurysm. ? Basilar artery:? Unremarkable.? No significant stenosis.? No occlusion.? No aneurysm. ? Vertebral arteries:? Unremarkable as visualized. ? Dural venous sinuses:? Right transverse sinus is hypoplastic and possibly occluded with distal reconstitution, similar to the prior ? Other:? Arterial phase brain parenchyma is unremarkable. ? Neck CT Angiogram: ? Internal carotid arteries:? Unremarkable.? No significant stenosis.? No dissection or occlusion. ? Common carotid arteries:? Unremarkable.? No significant stenosis.? No dissection or occlusion. ? External carotid arteries:? Unremarkable.? No occlusion. ? Vertebral arteries:? Unremarkable.? No significant stenosis.? No dissection or occlusion. ? Other:? Multilevel degenerative disc disease and arthropathy in the cervical spine. ? Aortic Arch and Mediastinum:? Partially visualized aortic arch unremarkable without evidence of aneurysm. Origins of the great vessels unremarkable. ? IMPRESSION: ? 1. Stable CT angiogram without change from 01/04/2021.? No evidence of large vessel occlusion, aneurysm or vascular malformation.? No significant arterial stenosis. ? 2. 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 ? Note: Any reported proximal ICA stenosis was calculated using NASCET guidelines.? Approved by: Kiran Ramey M.D. on 12/29/2022 at 11:14? ECG Data Attestation: I personally reviewed and interpreted this ECG as follows: Prior ECG tracings: available for review Interpretation: Sinus rhythm rate of 64 FL 172 QRS of 94 QTC 392. Prior from 01/04/2021 appears similar V3 may have some artifact but ST was elevated on prior as well. No acute or dynamic changes appreciated. MDM Narrative Medical decision making narrative: This is an 82-year-old male who comes in with complaint of a shocky feeling to the left side of his head but more parietal not temporal. Dizziness which is more lightheadedness not vertigo. His NIH is for mild facial droop in the left corner but patient and family states that this is his normal smile and is not new or changed. Otherwise his neurologic exam is negative. 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 Labs include CBC, coags and CMP with sodium of 133 glucose of 122 otherwise negative and negative troponin. With patient's findings today his symptomology seems less like to be stroke, discussed shingles was on differential he is had 2 or 3 days of symptoms if he develops a rash discussed he should be on antivirals and if involvement needs recurrent exam. Temporal artery wrist was contemplated but patient seems less likely the location is incorrect more parietal he is nontender over that location. Discussed with patient return precautions. Reviewed his labs including his CT angio findings and patient is to continue with his current medications. HOme meds: patient is on metformin, atenolol, aspirin 81 mg daily, atorvastatin and metoprolol. Discharge Plan Departure Patient Disposition: Home Clinical Impression: Dizziness, Head ache Activity Restrictions/Additional Instructions: Please follow-up with recheck. You can take Tylenol up to a 1000 mg for pain if needed. Please return for new or worsening symptoms, new rashes or skin changes, involvement of the eye with a rash or skin change, rapidly worsening headache, new speech changes, numbness, tingling weakness, new facial droop, vertigo or spinning, worsening dizziness or passing out or other new or concerning changes. Stand Alone Forms: Patient Portal/API
[2022-12-29 13:43] VITALS: BP 116/69; PULSE 62; RESP 18; O2SAT 99
== END 2022-12-29 13:44 | disposition home or self-care (01) ==
PROVIDERS: Emergency Provider Emergency Medicine; PCP Internal Medicine
DX: R42 Dizziness and giddiness (principal); R51.9 Headache, unspecified; R07.9 Chest pain, unspecified; R29.701 NIHSS score 1; Z95.5 Presence of coronary angioplasty implant and graft; Z79.01 Long term (current) use of anticoagulants
CPT/HCPCS: 36415; 70450; 70496; 70498; 80053; 80320; 82550; 84484; 85025; 85610; 85730; 93005; 99284; Q9967

== ENCOUNTER 2024-05-02 09:25 | Emergency (ER) | payer MEDICARE, SELFPAY ==
[2024-05-02] VITALS (8 sets, daily range): BP systolic 127–171; BP diastolic 69–87; PULSE 59–93; RESP 12–22; TEMP 36.7; O2SAT 96–99; BMI 23.7
--- NOTE | 2024-05-02 09:42 | EKG_ITS ---
[place] [address] [place] [id number] Test Date: 2024-05-02 Pat Name: Fidel Minaya Department: Room: Gender: Male Formulator: IFRAH : 1940 Requested By: Order Number: [id number] Reading MD: Shon Carlos Measurements Intervals [place] Rate: 74 P: 57 CA: 174 QRS: 20 QRSD: 92 T: 62 QT: 364 QTc: 404 Interpretive Statements Poor data quality, interpretation may be adversely affected Normal sinus rhythm Electronically Signed On 05-03-2024 9:46:00 PDT by Shon Carlos
[2024-05-02 09:55] LABS: Add Manual Diff / Slide Review NO; Basophils Absolute Auto 0 /uL (0-100); Basophils Percent Auto 0.7 % (0-2); Eosinophils Absolute Auto 100 /uL (0-450); Eosinophils Percent Auto 1.1 % (2-4); Hemoglobin 14.1 g/dL (13.5-17.5); Lymphocytes Absolute Auto 1700 /uL (1100-4500); Lymphocytes Percent Auto 23.3 % (25-40); Mean Corpuscular HGB Conc 34.4 % (30-36); Mean Corpuscular Hemoglobin 31.1 PG (26-34); Mean Corpuscular Volume 90.3 fL (80-100); Monocytes Absolute Auto 500 /uL (0-900); Monocytes Percent Auto 6.7 % (3-14); Neutrophils Absolute Auto 4900 /uL (1500-7000); Neutrophils Percent Auto 68.2 % (50-75); Platelet Count 367 X10^3/uL (150-400); Red Blood Cell Count 4.55 X10^6/uL (4.5-5.9); Red Cell Distribution Width 14.1 % (11.6-14.8); White Blood Cell Count 7.2 X10^3/uL (4.5-11.0)
[2024-05-02 09:59] LABS: Prothrombin Time 11.2 SECONDS (9.4-12.5)
[2024-05-02 10:02] LABS: PTT Partial Thromboplastin Tim 36 SECONDS (25.1-36.5)
--- NOTE | 2024-05-02 10:05 | DI.CT.S_ITS ---
PROCEDURE: CT ANGIO HEAD AND NECK INDICATIONS: veronica x 3 days, dizzy TECHNIQUE: After the administration of intravenous contrast, 1 mm thick sections acquired from the aortic arch through the [place] of Red[place]. 3-dimensional fzcbjpn-pqeksqfab-[id number] (MIP) and/or volume rendering reformats were acquired of the central intracranial vasculature and neck separately. For radiation dose reduction, the following was used: automated exposure control, adjustment of mA and/or kV according to patient size. COMPARISON: [facility], CT, CT ANGIO HEAD AND NECK, 12/29/2022, 11:15. [facility], CT, CT ANGIO HEAD AND NECK, 01/04/2021, 15:48. 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 prominent arachnoid granulations in the posterior fossa again seen. Poorly opacified right sigmoid sinus is similar to prior Posterior circulation: Dominance: Equal Vertebral arteries: No stenosis or occlusion. No aneurysm. Basilar artery: Unremarkable PComms: No aneurysm production quality analyst: Unremarkable NECK ANGIOGRAPHY: Aortic arch and subclavian arteries: Mild atherosclerotic calcifications CCAs: No stenosis, occlusion, or aneurysm. ICA origins (by NASCET criteria): Mild bilateral calcifications at the origin with less than 50% narrowing ICAs: No stenosis, occlusion or aneurysm. ECAs: Origins are patent. Vertebral arteries: Cmke-kn-aluhgtwt calcifications at the left sided origin Soft tissues: Small thyroid nodules again seen, some with calcifications. No pathologic lymph nodes by size criteria in the field of view Lung apices: No pneumothorax Bones: Degenerative changes Right maxillary mucous cyst. IMPRESSION: No high-grade stenosis or large vessel occlusion. Other likely nonacute/incidental findings above. If there is high concern for infarct, consider MRI. The right sigmoid venous sinuses poorly opacified, but is similar to 2020. This is not well assessed on this arterial phase study. Any quantitative measurements of stenosis were performed using NASCET criteria. Dictated by: Bj Rutledge M.D. on 05/02/2024 at 10:50 Approved by: Bj Rutledge M.D. on 05/02/2024 at 10:56
--- NOTE | 2024-05-02 10:05 | DI.CT.S_ITS ---
PROCEDURE: CT HEAD/BRAIN WO CON INDICATIONS: veronica x 3 days, dizzy TECHNIQUE: Noncontrast 4.5 mm thick angled axial sections acquired from the foramen magnum to the vertex, with coronal and sagittal reformats. For radiation dose reduction, the following was used: automated exposure control, adjustment of mA and/or kV according to patient size. COMPARISON: [facility], CT, CT HEAD/BRAIN WO CON, 12/29/2022, 11:15. FINDINGS: Image quality: Excellent CSF spaces: Basal cisterns are patent. Lateral ventricles are symmetric. Volume: Vascular calcifications. Periventricular white matter disease is commonly seen with chronic microangiopathy. Volume loss is present. These findings are Hert-[id number]-[id number] Brain: No intracranial hemorrhage. Alfaro-white differentiation is grossly maintained. Craniofacial structures: No significant paranasal sinus opacity IMPRESSION: No acute intracranial abnormality. If there is high concern for parenchymal pathology, consider further evaluation with MRI. Dictated by: Bj Rutledge M.D. on 05/02/2024 at 10:49 Approved by: Bj Rutledge M.D. on 05/02/2024 at 10:50
[2024-05-02 10:06] LABS: Alanine Aminotransferase 18 IU/L (<50); Albumin 4.4 g/dL (3.5-5.0); Albumin Globulin Ratio 1.8 (1.0-2.8); Alkaline Phosphatase 81 U/L (38-126); Aspartate Aminotransferase 23 IU/L (17-59); BUN Creatinine Ratio 14.1 (6-22); Bilirubin Total 0.7 mg/dL (0.2-1.3); Blood Urea Nitrogen 9 mg/dL (9-20); Calcium 8.8 mg/dL (8.4-10.2); Carbon Dioxide 27 mmol/L (22-32); Chloride 101 mmol/L (98-107); Creatine Kinase 39 U/L (55-170); Estimated Glomerular Filt Rate > 60 mL/min (>60); Ethanol (ETOH) < 10 mg/dL; Globulin 2.4 g/dL (1.7-4.1); Glucose 152 mg/dL (80-110); HEMOLYSIS < 15 (0-50); Potassium 4.1 mmol/L (3.4-5.1); Sodium 134 mmol/L (137-145); Total Protein 6.8 g/dL (6.3-8.2)
[2024-05-02 10:16] LABS: Troponin I < 0.012 ng/mL (0.01-0.034)
--- NOTE | 2024-05-02 10:21 | ED_ITS ---
HPI - Headache General Chief Complaint: Headache Stated Complaint: poss stroke Time Seen by Provider: 05/02/24 10:05 Source: patient, RN notes reviewed and old records reviewed Mode of arrival: Wheelchair Limitations: no limitations History of Present Illness HPI Narrative: This is a 83-year-old male with history of hypertension, dyslipidemia, coronary artery disease with multiple stents on Plavix. Patient states for the past 3 or 4 days he has had pressure over the left parietal area that has been persistent. Somewhat waxes and wanes but has not resolved. He states it is uncomfortable sometimes painful. He thought that his left eye was maybe droopy but when he looked in the mirror it was not. No changes to hearing or his ear. He has not had any other weakness, no vision changes no rash, no redness no itchiness. He states no numbness tingling or weakness. No fevers, no difficulty with ambulation. Denies any GI or urinary symptoms, no vision changes no speech changes. He notes felt a little bit lightheaded today but denies any vertigo symptoms. He states he had a similar episode about 3 years ago which ultimately resolved. He states he was seen and evaluated in the ED. patient states he is on Plavix daily medication for hypertension and dyslipidemia he has never had any prior strokes or TIAs. He states he did have heart catheterization and 3 new cardiac stents placed about 2 months ago at [facility]. Denies any allergies besides penicillin. No tobacco, alcohol or recreational drugs. 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 Related Data Allergies Allergy/AdvReac Type Severity Reaction Status Date / Time Penicillins Allergy Verified 05/02/24 09:34 Review of Systems Review of Systems ROS Unobtainable: All systems reviewed & are unremarkable except as noted in HPI and below Patient History Medical History Diabetes Coronary artery disease Social History Smoking Status: Never smoker Smoking Status: Never smoker alcohol intake frequency: 0-2 drinks per day Substance Use Type: does not use Exam Narrative Exam Narrative: GEN: well nourished, well appearing male, alert and oriented x 3, patient appears to be in mild distress. HEENT: Atraumatic, no erythema or skin changes, pupils are equal round reactive to light, extraocular movements are intact, no drooping of lids or weakness of the eyelids or face, nares are clear, TMs are clear with no fluid bilaterally, there is no conjunctival pallor. Throat is clear without any exudates, erythema, tonsillar enlargement or uvular deviation, no facial droop HEART: Regular rate and rhythm without murmur, clicks, rubs. No carotid bruits, pulses are equal in upper and lower extremities LUNGS:Lungs clear to auscultation, no wheezes, rales, crackles, chest moves symmetrically ABD:bowel sounds normal, soft, non-tender, no guarding, rebound, rigidity, no masses noted, no hepatosplenomegaly :No CVA tenderness MSCL: Non-tender, no muscle atrophy, muscles strength 5/5 upper and lower extremities, full range of motion, normal gait NEURO:CN 2-12 intact, sensation normal, finger nose finger test normal, heel catherine test normal. Initial Vital Signs Initial Vital Signs: Vital Signs Temperature 98.1 F 05/02/24 09:28 Pulse Rate 85 05/02/24 09:28 Respiratory Rate 18 05/02/24 09:28 Blood Pressure 134/71 05/02/24 09:28 Pulse Oximetry 98 05/02/24 09:28 Oxygen Delivery Method Room Air 05/02/24 09:28 Scores NIH Stroke Scale Level of Conciousness: Alert, keenly responsive Ask month/age: Answers both questions correctly. Open/close eyes, close hand: Performs both tasks correctly Best gaze horizontal: Normal Visual hylton: No visual loss Facial palsy: Normal symetrical movement Left arm drift: No drift for full 10 sec Right arm drift: No drift for full 10 sec Left leg drift: No drift for full 5 sec Right leg drift: No drift for full 5 sec Limb ataxia: Absent Sensory on face/arms/legs: Normal, no sensory loss Best language: No aphasia, normal Dysarthria: Normal Extinction or inattention: No abnormality Total NIH Stroke scale score: 0 Course Orders Ordered: ED Orders 05/02/24 09:40 Complete Blood Count AUTO DIFF Stat Comprehensive Metabolic Panel Stat Ethanol (ETOH) Stat PTT Partial Thromboplastin Contreras Stat Prothrombin Time INR Stat Troponin & CK Cardiac Panel Stat 05/02/24 09:47 EKG-12 Lead Stat 06/29/24 10:05 CT angio head and neck Stat CT head/brain wo con Stat 05/02/24 10:49 Urinalysis and Microscopic Stat Urine Drug Screen, Rapid Stat Vital Signs Vital signs: Vital Signs - 8 hr 05/02/24 10:30 05/02/24 10:30 05/02/24 11:00 Pulse Rate 64 59 L Respiratory Rate 12 Blood Pressure 147/71 H Pulse Oximetry 97 99 05/02/24 11:15 05/02/24 11:15 Pulse Rate 67 Respiratory Rate 16 Blood Pressure 152/87 H Pulse Oximetry 99 MDM - Headache Lab Data 05/02/24 09:40 05/02/24 09:40 Labs: Lab Results 05/02/24 05/02/24 05/02/24 Range/Units 09:40 10:49 10:49 WBC 7.2 (4.5-11.0) X10^3/uL RBC 4.55 (4.5-5.9) X10^6/uL Hgb 14.1 (13.5-17.5) g/dL Hct 41.0 (41-53) % MCV 90.3 (80-100) fL MCH 31.1 (26-34) PG MCHC 34.4 (30-36) % RDW 14.1 (11.6-14.8) % Plt Count 367 (150-400) X10^3/uL Neut % (Auto) 68.2 (50-75) % Lymph % (Auto) 23.3 L (25-40) % [place] % (Auto) 6.7 (3-14) % Eos % (Auto) 1.1 L (2-4) % Baso % (Auto) 0.7 (0-2) % Neut # (Auto) 4900 (2552-6778) /uL Lymph # (Auto) 1700 (8215-4323) /uL [place] # (Auto) 500 (0-900) /uL Eos # (Auto) 100 (0-450) /uL Baso # (Auto) 0 (0-100) /uL PT 11.2 (9.4-12.5) SECONDS INR 1.0 (0.9-1.3) APTT 36 (25.1-36.5) SECONDS Sodium 134 L (137-145) mmol/L Potassium 4.1 (3.4-5.1) mmol/L Chloride 101 (98-107) mmol/L Carbon Dioxide 27 (22-32) mmol/L BUN 9 (9-20) mg/dL Creatinine 0.64 L (0.66-1.25) mg/dL Estimated GFR > 60 (>60) mL/min BUN/Creatinine Ratio 14.1 (6-22) Glucose 152 H (80-110) mg/dL Calcium 8.8 (8.4-10.2) mg/dL Total Bilirubin 0.7 (0.2-1.3) mg/dL AST 23 (17-59) IU/L ALT 18 (<50) IU/L Alkaline Phosphatase 81 (38-126) U/L Total Creatine Kinase 39 L (55-170) U/L Troponin I < 0.012 (0.01-0.034) ng/mL Total Protein 6.8 (6.3-8.2) g/dL Albumin 4.4 (3.5-5.0) g/dL Globulin 2.4 (1.7-4.1) g/dL Albumin/Globulin Ratio 1.8 (1.0-2.8) Urine Color Yellow Urine Appearance Clear Urine pH 7.5 Normal (4.5-8.0) Ur Specific [place] <=1.005 (1.000-1.035) Urine Protein Negative (Negative) Urine Glucose (UA) Negative (Negative) g/dL Urine Ketones Negative (NEGATIVE) Urine Occult Blood Negative (Negative) Urine Nitrate Negative (Negative) Urine Bilirubin Negative (NEGATIVE) Urine Urobilinogen 0.2 (0.2) E.U./dL Ur Leukocyte Esterase Negative (NEGATIVE) Urine RBC None seen (0-5/HPF) Urine WBC None seen (0-5/HPF) Ur Squamous Epith Cells None seen (0-5/HPF) Amorphous Sediment 1+ Urine Bacteria None seen (None) Ur Culture Indicated? Cult not indicated Vol Urine Centrifuged 10ml (spun) U Opiates 300ng/mL cut Negative (Negative) Ur Oxycodone Screen Negative (Negative) Urine Methadone Screen Negative (Negative) Ur Barbiturates Screen Negative (Negative) U Tricyclic Antidepress Negative (Negative) Ur Phencyclidine Scrn Negative (Negative) Ur Amphetamines Screen Negative (Negative) U Methamphetamines Scrn Negative (Negative) Ur MDMA Scrn (Ecstasy) Negative (Negative) U Benzodiazepines Scrn Negative (Negative) Urine Cocaine Screen Negative (Negative) U Marijuana (THC) Screen Negative (Negative) Urine Specific [place] Normal (Normal) Ethyl Alcohol < 10 ( - 10) mg/dL Ur Creatinine Normal (Normal) ECG Data Attestation: I personally reviewed and interpreted this ECG as follows: Interpretation: Sinus rhythm rate of 70 IA 174 QRS of 92 QTC of [address] elevation depression appreciated patient has prior from 12/29/2022 with no acute changes. MDM Narrative Medical decision making narrative: 83-year-old male presents with complaint of headache for past 3 days little bit of dizziness he notes he would similar symptoms a couple years ago. NIH is 0 Labs show white count of 7.2 hemoglobin of 14 platelets of 367 lymphocyte percentage is low. Coags are negative, sodium is 134 potassium is 4.1 chloride 101 CO2 of 27 BUN and creatinine 0.64 glucose is 152 calcium is 8.8, total CK is 39 otherwise normal LFTs, troponins less than 0.012. ETOH is negative. EKG shows no acute change Head CT shows no acute intracranial change. CT head and neck angio no acute changes, no high-grade stenosis or large vessel occlusion right sigmoid venous sinuses poorly opacified but similar to 2020. Patient's NIH is 0, he describes left parietal headache some slight lightheadedness but no vertigo symptoms no acute neurologic changes no difficulty with ambulation suspicion for stroke where she was TI as low as patient has had headache for 3 days but felt dizzy today. Discussed with patient he would similar episode about 3 years ago he states it self resolved. Plan have patient follow up with primary care as needed. Patient feels comfortable returning home all questions answered. Discharge Plan Departure Patient Disposition: Home Clinical Impression: Left-sided headache, Dizziness Activity Restrictions/Additional Instructions: Follow up with your physician for recheck. You can take Tylenol up to a 1000 mg every 6 hours as needed for headaches Please return if you have new or worsening symptoms, rapidly worsening headaches, sudden vision changes, new droopiness or changes to face, new numbness tingling or weakness, inability ambulate safely, rash or skin changes, persistent vomiting or other new or concerning changes. Referrals: Brendan Levine MD [Primary Care Provider] - Stand Alone Forms: Patient Portal/API
[2024-05-02 11:06] LABS: Appearance Urine UA CLEAR; Bilirubin Urine UA NEGATIVE (NEGATIVE); Color Urine UA YELLOW; Glucose Urine UA NEGATIVE (Negative); Ketones Urine UA NEGATIVE (NEGATIVE); Leukocyte Esterase Urine UA NEGATIVE (NEGATIVE); Nitrite Urine UA NEGATIVE (Negative); Occult Blood Urine UA NEGATIVE (Negative); Protein Urine UA NEGATIVE (Negative); Specific Gravity Urine UA <=1.005 (1.000-1.035); Urobilinogen Urine UA 0.2 E.U./dL (0.2); pH Urine UA 7.5 (4.5-8.0)
[2024-05-02 11:07] LABS: Ur Creatinine Normal (Normal); Ur Specific Gravity Normal (Normal)
[2024-05-02 11:08] LABS: UR Morphine/Opiate cutoff 300 Negative (Negative); Urine Amphetamines Negative (Negative); Urine Barbiturates Negative (Negative); Urine Benzodiazepines Negative (Negative); Urine Cocaine Negative (Negative); Urine MDMA Negative (Negative); Urine Methadone Negative (Negative); Urine Methamphetamines Negative (Negative); Urine Oxycodone Negative (Negative); Urine Phencyclidine Negative (Negative); Urine Tetrahydrocannabinol Negative (Negative); Urine Tricyclic Antidepressant Negative (Negative); Urine pH Normal (Normal)
[2024-05-02 11:12] LABS: Amorphous Sediment Urine 1+; Bacteria Urine None Seen; Culture Indicated Urine Cult Not Indicated; RBC Urine None Seen (0-5/HPF); Squamous Epithelial Cell Urine None Seen (0-5/HPF); Urine Volume 10mL (spun); WBC Urine None Seen (0-5/HPF)
== END 2024-05-02 11:21 | disposition home or self-care (01) ==
PROVIDERS: Emergency Provider Emergency Medicine; PCP Internal Medicine
DX: R51.9 Headache, unspecified (principal); R42 Dizziness and giddiness; Z79.01 Long term (current) use of anticoagulants
CPT/HCPCS: 36415; 70450; 70496; 70498; 80053; 80305; 80320; 81001; 82550; 84484; 85025; 85610; 85730; 93005; 99284; Q9967

== ENCOUNTER → 2025-01-19 09:45 | Outpatient (CLI) | payer OTHER, SELFPAY ==
[2025-01-19 10:55] LABS: BUN Creatinine Ratio 15.4 (6-22); Blood Urea Nitrogen 10 mg/dL (9-20); Calcium 9.8 mg/dL (8.4-10.2); Carbon Dioxide 27 mmol/L (22-32); Chloride 98 mmol/L (98-107); Cholesterol 136 mg/dL (140-199); Estimated Glomerular Filt Rate > 60 mL/min (>60); Glucose 86 mg/dL (80-110); HDL Cholesterol 68 mg/dL (40-60); HEMOLYSIS < 15 (0-50); LDL Cholesterol Calculated 56 mg/dL (<100); Potassium 4.5 mmol/L (3.4-5.1); Sodium 133 mmol/L (137-145); Triglycerides 59 mg/dL (35-150)
== END ==
PROVIDERS: PCP Family Medicine; Referring Provider Family Medicine; Visit Provider Family Medicine
DX: I25.10 Atherosclerotic heart disease of native coronary artery without angina pectoris (principal); E11.9 Type 2 diabetes mellitus without complications; I10 Essential (primary) hypertension
CPT/HCPCS: 36415; 80048; 80061

== ENCOUNTER → 2025-07-20 08:37 | Outpatient (CLI) | payer OTHER, SELFPAY ==
[2025-07-20 09:45] LABS: Hemoglobin A1C% w Est Avg Glu 6.2 % (4.0-6.0)
[2025-07-20 10:31] LABS: Blood Urea Nitrogen 7 mg/dL (9-20); Calcium 9.2 mg/dL (8.4-10.2); Carbon Dioxide 29 mmol/L (22-32); Chloride 96 mmol/L (98-107); Estimated Glomerular Filt Rate > 60 mL/min (>60); Glucose 92 mg/dL (70-99); HEMOLYSIS < 15 (0-50); Potassium 4.4 mmol/L (3.4-5.1); Sodium 131 mmol/L (137-145)
== END ==
PROVIDERS: PCP Family Medicine; Referring Provider Family Medicine; Visit Provider Family Medicine
DX: E11.9 Type 2 diabetes mellitus without complications (principal); I10 Essential (primary) hypertension; I25.10 Atherosclerotic heart disease of native coronary artery without angina pectoris
CPT/HCPCS: 36415; 80048; 83036